=== PATIENT | female | born 1965 | race Two or more races ===

== ENCOUNTER 2018-02-03 12:10 | Outpatient (CLI) | payer OTHER | END 2018-02-03 12:15 | disposition home or self-care (01) | LOC: MAMO-SONO 12:10 | DX: Z12.31 Encounter for screening mammogram for malignant neoplasm of breast (principal); N64.4 Mastodynia ==

== ENCOUNTER 2018-03-25 12:10 | Outpatient (CLI) | payer OTHER | END 2018-03-25 12:22 | disposition home or self-care (01) | LOC: RAD 12:10 | DX: M46.1 Sacroiliitis, not elsewhere classified (principal); R10.2 Pelvic and perineal pain ==

== ENCOUNTER → 2020-09-13 | Outpatient (CLI) | payer OTHER | END | disposition home or self-care (01) | LOC: MAMO-SONO 09:00 → SONOGRAMA 09:42 | PROVIDERS: ATTEND Internal Medicine Gastroenterology | DX: R16.0 Hepatomegaly, not elsewhere classified (principal) ==

== ENCOUNTER 2020-11-22 14:28 | Outpatient (CLI) | payer OTHER | END 2020-11-22 14:40 | disposition home or self-care (01) | LOC: MAMO-SONO 14:28 | PROVIDERS: ATTEND Internal Medicine | DX: N60.11 Diffuse cystic mastopathy of right breast (principal); N60.12 Diffuse cystic mastopathy of left breast ==

== ENCOUNTER 2022-03-06 14:31 | Outpatient (CLI) | payer OTHER | END 2022-03-06 15:14 | disposition home or self-care (01) | LOC: MAMO-SONO 14:31 | PROVIDERS: ATTEND Internal Medicine | DX: N60.11 Diffuse cystic mastopathy of right breast (principal); N60.12 Diffuse cystic mastopathy of left breast ==

== ENCOUNTER 2023-06-20 13:50 | Outpatient (CLI) | payer OTHER | END 2023-06-20 14:05 | disposition home or self-care (01) | LOC: MAMO-SONO 13:50 | DX: N63.0 Unspecified lump in unspecified breast (principal); N64.4 Mastodynia; Z12.31 Encounter for screening mammogram for malignant neoplasm of breast; R92.2 Inconclusive mammogram ==

== ENCOUNTER 2024-06-22 14:43 | Outpatient (CLI) | payer OTHER | END 2024-06-22 14:44 | disposition home or self-care (01) | LOC: MAMO-SONO 14:43 | PROVIDERS: ATTEND Internal Medicine | DX: N60.11 Diffuse cystic mastopathy of right breast (principal); N60.12 Diffuse cystic mastopathy of left breast ==